=== PATIENT | male | born 1950 | race Caucasian/White ===

== ENCOUNTER 2022-03-08 23:10 | Inpatient (IN) | payer MEDICARE, MEDICAID ==
[~2022-03-08] VITALS: Ht 172.7 cm; Wt 65.2 kg
[2022-03-08] MEDS ORDERED: LISI-893 PO (23:51)
[2022-03-08] MEDS ORDERED: CHL25 PO (23:51)
[2022-03-08] MEDS ORDERED: CALC250T2 PO (23:51)
[2022-03-08] MEDS ORDERED: SIMV-260 PO (23:51)
[2022-03-08] MEDS ORDERED: LACT10SO32 PO (23:53)
[2022-03-08] MEDS ORDERED: DONE-51 PO (23:53)
[2022-03-08] MEDS ORDERED: OXCA300T57 PO (23:53)
[2022-03-09 00:11] LABS: BASOPHILS % (AUTO) 0.5 % (0.0-2.0); EOSINOPHILS % (AUTO) 0.2 % (1.0-6.0); HEMATOCRIT 40.9 % (41-53); HEMOGLOBIN 12.4 g/dL (13.5-17.5); LYMPHOCYTES # (AUTO) 6.5 K/uL (1.0-4.8); LYMPHOCYTES % (AUTO) 38.4 % (22.0-44.0); MEAN CORPUSCULAR HEMOGLOBIN 30.3 pg (26.0-34.0); MEAN CORPUSCULAR HGB CONC 30.3 G/dL (31.0-37.0); MEAN CORPUSCULAR VOLUME 100 fL (80-100); MONOCYTES # (AUTO) 1.1 K/uL (0.1-1.0); MONOCYTES % (AUTO) 6.3 % (2.0-9.0); NEUTROPHILS # (AUTO) 9.3 K/uL (1.8-7.7); NEUTROPHILS % (AUTO) 54.6 % (40.0-70.0); PLATELET COUNT (AUTO) 127 K/uL (150-450); RED BLOOD CELL COUNT(AUTO) 4.09 MIL/uL (4.50-5.90); RED CELL DISTRIBUTION WIDTH 17.5 % (11.5-14.5)
[2022-03-09] MEDS ORDERED: NOREPINEPHRINE 8 MG/D5%-WATER 250 ML IV PRN (00:15)
[2022-03-09 00:42] LABS: ALBUMIN 2.8 g/dL (3.4-5.0); BILIRUBIN,TOTAL 0.2 mg/dL (0.1-1.0); CALCIUM, TOTAL 8.3 mg/dL (8.8-10.5); CREATININE 3.82 mg/dL (0.60-1.30); POTASSIUM 5.6 mmol/L (3.5-5.1); TOTAL PROTEIN, SERUM 7.7 g/dL (6.4-8.2)
[2022-03-09 00:44] LABS: LACTIC ACID 4.8 mmol/L (0.4-2.0)
[2022-03-09] MEDS ORDERED: PHENYLEPHRINE 200 MG/D5%-WATER 250 ML IV PRN (00:45)
[2022-03-09] MEDS ORDERED: PIPERACILLIN/TAZO 3.375 GM/D5W 50 ML IV ONE (00:45)
[2022-03-09] MEDS ORDERED: VANCOMYCIN 1GM/WATER(PEG/NADA) 200 ML IV ONE (00:45)
[2022-03-09 00:46] LABS: D-DIMER 23.48 mg/L FEU (0.00-0.50)
[2022-03-09 01:07] LABS: ABG BASE EXCESS -18.1 mmol/L (-2.0-3.0); ABG CARBOXYHEMOGLOBIN 0.2 % (0.0-1.5); ABG HCO3 11.5 mmol/L (22.0-26.0); ABG METHEMOGLOBIN 0.3 % (0.0-1.5); ABG OXYGEN CONTENT 15.4 mL/dL (15.0-23.0); ABG OXYGEN SATURATION 98.9 % (95.0-98.0); ABG OXYHEMOGLOBIN 98.4 % (94.0-100.0); ABG PCO2 37 mmHg (35-45); ABG TOTAL HEMOGLOBIN 10.7 G/dL (12.0-18.0); PO2, ARTERIAL BG 251.1 mmHg (75.0-83.0); SOURCE, BLOOD GAS ARTERIAL; TEMPERATURE, FAHRENHEIT, BG 99.1 FAHREN (96.0-98.6)
[2022-03-09 01:08] LABS: ABG PH 7.106 (7.35-7.450); O2 DEVICE,BLOOD GAS VENT (ROOM AIR); SITE, BLOOD GAS RT RADIAL; VT, ABG 450 ml
[2022-03-09 01:09] LABS: PEEP,BG 5 cm H2O
[2022-03-09 01:11] LABS: CREATINE KINASE, TOTAL ONLY 1643 U/L (39-308)
[2022-03-09] MEDS ORDERED: DOPamine 400MG/D5W[STANDARD] 250 ML IV PRN (01:15)
[2022-03-09] MEDS ORDERED: SODIUM CHLORIDE 0.9% 1,900 ML IV ONE (01:15)
[2022-03-09 01:44] LABS: COVID AG,FIA SOURCE NASAL SWAB
[2022-03-09] MEDS ORDERED: VASOPRESSIN 40 UNITS in DEXTROSE 5%-WATER 98 ML IV PRN (02:00)
[2022-03-09 02:11] LABS: INFLUENZA TYPE A NEGATIVE FOR TYPE A (NEGATIVE); INFLUENZA TYPE B NEGATIVE FOR TYPE B (NEGATIVE)
[2022-03-09] MEDS ORDERED: ONDANSETRON HCL 4 MG/2 ML VIAL IVP PRN (02:15)
[2022-03-09] MEDS ORDERED: SODIUM CHLORIDE 0.9% 500 ML IV ONE ×2 (02:15→02:30)
[2022-03-09] MEDS ORDERED: ACETAMINOPHEN 325 MG TABLET PO PRN (02:15)
[2022-03-09] MEDS ORDERED: SODIUM CHLORIDE 0.9% 1,000 ML IV SCH (02:15)
[2022-03-09] MEDS ORDERED: CALCIUM GLUCONATE 100 MG/ML 10 ML IVP ONE (02:15)
[2022-03-09] MEDS ORDERED: SODIUM BICARBONATE [ADULT] 8.4% 50 MEQ/50 ML SYRINGE IVP ONE ×2 (02:27→02:30)
[2022-03-09] MEDS ORDERED: INSULIN LISPRO 100 UNITS/ML SQ ONE (02:30)
[2022-03-09] MEDS ORDERED: DEXTROSE 50%-WATER 25 GM/50 ML SYRINGE IVP PRN ×3 (02:30→12:30)
[2022-03-09] MEDS ORDERED: DEXTROSE 50%-WATER 25 GM/50 ML SYRINGE IVP ONE (02:30)
[2022-03-09] MEDS ORDERED: INSULIN LISPRO 100 UNITS/ML SQ PRN ×3 (02:30→12:30)
[2022-03-09] MEDS ORDERED: HEPARIN SODIUM,PORCINE 5,000 UNITS/ML VIAL IVP PRN ×2 (02:45)
[2022-03-09] MEDS ORDERED: HEPARIN SODIUM 25000 UNITS/D5W 250 ML IV PRN (02:45)
[2022-03-09] MEDS ORDERED: HEPARIN SODIUM,PORCINE 5,000 UNITS/ML VIAL IVP ONE (02:45)
[2022-03-09] MEDS ORDERED: *CLINICAL-CEFEPIME DOSING CLINICAL ONE (03:00)
[2022-03-09 03:06] LABS: APPEARANCE,URINE TURBID (CLEAR); BILIRUBIN,URINE NEGATIVE (NEGATIVE); GLUCOSE, URINE (UA) TRACE mg/dL (NEGATIVE); KETONES,URINE NEGATIVE (NEGATIVE); LEUKOCYTE ESTERASE ,URINE LARGE (NEGATIVE); NITRATE,URINE NEGATIVE (NEGATIVE); OCCULT BLOOD,URINE LARGE (NEGATIVE); PROTEIN,URINE 300-600,SEE CONFIRM mg/dL (NEGATIVE); SPECIFIC GRAVITIY, URINE 1.021 (1.003-1.030); UROBILINOGEN,URINE <=1.0 mg/dL (<=1.0)
[2022-03-09 03:08] LABS: CREATININE,URINE RANDOM 142.2 mg/dL (30.0-125.0)
[2022-03-09 03:15] LABS: CREATININE 2.85 mg/dL (0.60-1.30); POTASSIUM 4.3 mmol/L (3.5-5.1)
[2022-03-09] MEDS ORDERED: VANCOMYCIN HCL 1 GM in DEXTROSE 5%-WATER 250 ML IV PRN (03:15)
[2022-03-09] MEDS ORDERED: DEXMEDETOMIDINE HCL 400 MCG in SODIUM CHLORIDE 0.9% 96 ML IV PRN (03:15)
[2022-03-09 03:20] LABS: SULFOSALICYLIC ACID,URINE 3+ (Negative); WBC,URINE Full Field /HPF (0-5)
[2022-03-09 03:21] LABS: BACTERIA,URINE Rare /HPF (None Seen)
[2022-03-09 03:22] LABS: FINE GRANULAR CASTS,URINE 0-2 /LPF (None Seen)
[2022-03-09] MEDS ORDERED: SODIUM BICARBONATE 150 MEQ in DEXTROSE 5%-0.45% SODIUM CHL 1,000 ML IV SCH (03:30)
[2022-03-09 03:51] LABS: ABG PCO2 37 mmHg (35-45); ABG PH 7.213 (7.35-7.450); PO2, ARTERIAL BG 51.7 mmHg (75.0-83.0); SITE, BLOOD GAS RT BRACHIAL; SOURCE, BLOOD GAS ART; TEMPERATURE, FAHRENHEIT, BG 98.6 FAHREN (96.0-98.6)
[2022-03-09 03:52] LABS: ABG BASE EXCESS -13.4 mmol/L (-2.0-3.0); ABG HCO3 14.4 mmol/L (22.0-26.0); ABG OXYHEMOGLOBIN 82.4 % (94.0-100.0); ABG TOTAL HEMOGLOBIN 10.5 G/dL (12.0-18.0)
[2022-03-09 03:53] LABS: ABG CARBOXYHEMOGLOBIN 0.3 % (0.0-1.5); ABG METHEMOGLOBIN 0.3 % (0.0-1.5); ABG OXYGEN CONTENT 12.2 mL/dL (15.0-23.0)
[2022-03-09 03:54] LABS: ABG A-A DIFF O2 191.6 mmHg (10-20.0); ABG OXYGEN SATURATION 83.1 % (95.0-98.0); O2 DEVICE,BLOOD GAS VENTILATOR (ROOM AIR); PEEP,BG 5 cm H2O; VT, ABG 400 ml
[2022-03-09 04:21] LABS: INR 1.3 (0.9-1.1); PROTHROMBIN TIME 13.7 SEC (9.4-11.6)
[2022-03-09] MEDS ORDERED: ALBUTEROL SULFATE 2.5 MG/0.5 ML NEB SOLUTION NEB ONE (05:00)
[2022-03-09] MEDS: NOREPINEPHRINE 8 MG/D5%-WATER 250 ML IV PRN ×3 (05:44→18:25)
[2022-03-09] MEDS ORDERED: MIDAZOLAM HCL 2 MG/2 ML VIAL IVP PRN (06:00)
[2022-03-09] MEDS ORDERED: CEFEPIME HCL 1 GM in DEXTROSE 5%-WATER 50 ML IV SCH (06:00)
[2022-03-09 08:00] VITALS: BP 107/53
[2022-03-09] MEDS ORDERED: HEPARIN SODIUM,PORCINE 5,000 UNITS/ML VIAL SQ SCH (08:00)
[2022-03-09] MEDS ORDERED: PROPOFOL 1000 MG/ISO-OSM 100 ML ONE (08:31)
[2022-03-09] MEDS ORDERED: [UNRECOGNIZED DRUG - OTHER] PO SCH (09:00)
[2022-03-09] MEDS ORDERED: SIMVASTATIN 20 MG TABLET PO SCH (09:00)
[2022-03-09] MEDS ORDERED: CHLORTHALIDONE 25 MG TABLET PO SCH (09:00)
[2022-03-09] MEDS: LACTULOSE 20 GM/30 ML SOLUTION UDCUP PO SCH ×2 (09:00→21:18)
[2022-03-09] MEDS: OXcarbazepine 300 MG TABLET PO SCH ×2 (09:00→21:19)
[2022-03-09] MEDS: FAMOTIDINE 10 MG/ML 2 ML VIAL IVP SCH (09:22)
[2022-03-09 09:40] LABS: CALCIUM, TOTAL 6.7 mg/dL (8.8-10.5); CREATININE 4.02 mg/dL (0.60-1.30); POTASSIUM 4.3 mmol/L (3.5-5.1)
[2022-03-09 09:45] LABS: LACTIC ACID 7.8 mmol/L (0.4-2.0)
[2022-03-09 09:52] LABS: BASOPHILS % (AUTO) 0.4 % (0.0-2.0); EOSINOPHILS % (AUTO) 0.7 % (1.0-6.0); HEMATOCRIT 35.5 % (41-53); LYMPHOCYTES # (AUTO) 1.3 K/uL (1.0-4.8); LYMPHOCYTES % (AUTO) 39.2 % (22.0-44.0); MEAN CORPUSCULAR HGB CONC 31.1 G/dL (31.0-37.0); MEAN CORPUSCULAR VOLUME 100 fL (80-100); MONOCYTES % (AUTO) 1.3 % (2.0-9.0); NEUTROPHILS % (AUTO) 58.4 % (40.0-70.0); PLATELET COUNT (AUTO) 88 K/uL (150-450); RED BLOOD CELL COUNT(AUTO) 3.56 MIL/uL (4.50-5.90); RED CELL DISTRIBUTION WIDTH 17.3 % (11.5-14.5)
[2022-03-09] MEDS: PROPOFOL 1000 MG/ISO-OSM 100 ML IV PRN (10:00)
[2022-03-09 10:03] LABS: ALBUMIN 1.9 g/dL (3.4-5.0); BILIRUBIN,TOTAL 0.4 mg/dL (0.1-1.0); TOTAL PROTEIN, SERUM 5.7 g/dL (6.4-8.2)
[2022-03-09 10:17] LABS: SITE, BLOOD GAS RT RADIAL
[2022-03-09 10:18] LABS: ABG PH 7.259 (7.35-7.450); SOURCE, BLOOD GAS ARTERIAL; TEMPERATURE, FAHRENHEIT, BG 90.1 FAHREN (96.0-98.6)
[2022-03-09 10:19] LABS: ABG BASE EXCESS -17.4 mmol/L (-2.0-3.0); ABG CARBOXYHEMOGLOBIN 0.3 % (0.0-1.5); ABG HCO3 12.4 mmol/L (22.0-26.0); ABG OXYHEMOGLOBIN 95.2 % (94.0-100.0); ABG PCO2 23 mmHg (35-45); ABG TOTAL HEMOGLOBIN 11.9 G/dL (12.0-18.0); PO2, ARTERIAL BG 65.7 mmHg (75.0-83.0)
[2022-03-09 10:20] LABS: ABG METHEMOGLOBIN 0.3 % (0.0-1.5); ABG OXYGEN SATURATION 95.8 % (95.0-98.0)
[2022-03-09 10:21] LABS: O2 DEVICE,BLOOD GAS VENTILATOR (ROOM AIR); PEEP,BG 5 cm H2O; VT, ABG 400 ml
[2022-03-09 10:24] LABS: PLATELET MORPHOLOGY COMMENT LARGE PLTS PRESENT
[2022-03-09] MEDS ORDERED: POTA-92 PO (11:18)
[2022-03-09] MEDS ORDERED: CALC200T42 PO (11:18)
[2022-03-09] MEDS: PHENYLEPHRINE 200 MG/D5%-WATER 250 ML IV PRN ×2 (11:30→21:19)
[2022-03-09] MEDS: DEXTROSE 5% IV SCH ×4 (11:30→17:11)
[2022-03-09] MEDS: [UNRECOGNIZED DRUG - OTHER] IV SCH ×4 (11:30→17:11)
[2022-03-09] MEDS: VASOPRESSIN 40 UNITS in DEXTROSE 5%-WATER 98 ML IV PRN (11:45)
[2022-03-09 12:00] VITALS: BP 59/31
[2022-03-09] MEDS ORDERED: HEPARIN SODIUM,PORCINE 1,000 UNITS/ML VIAL ONE (14:25)
[2022-03-09] MEDS ORDERED: HEPARIN SODIUM,PORCINE 1,000 UNITS/ML VIAL IVCATH PRN (14:30)
[2022-03-09] MEDS: DOPamine 400MG/D5W[STANDARD] 250 ML IV PRN ×2 (15:13→19:51)
[2022-03-09 16:00] VITALS: BP 105/60
[2022-03-09 17:31] LABS: CALCIUM, TOTAL 6.1 mg/dL (8.8-10.5); CREATININE 3.67 mg/dL (0.60-1.30); MAGNESIUM 2.1 mg/dL (1.80-2.40); PHOSPHORUS 4.4 mg/dL (2.5-4.9); POTASSIUM 4.1 mmol/L (3.5-5.1)
[2022-03-09] MEDS ORDERED: EPINEPHrine 1:10,000 [1 MG/10 ML] SYRINGE IVP ONE (17:37)
[2022-03-09] MEDS ORDERED: DOPamine HCL/D5W 400 MG/250 ML IV BAG IV ONE (17:37)
[2022-03-09] MEDS ORDERED: AMIODARONE HCL 50 MG/ML 3 ML VIAL IV ONE (17:37)
[2022-03-09] MEDS ORDERED: INSULIN REGULAR, HUMAN 100 UNITS in SODIUM CHLORIDE 0.9% 99 ML IV PRN ×2 (17:45)
[2022-03-09 18:01] LABS: GLUCOSE,POINT OF CARE 499 MG/DL (70-110)
[2022-03-09 18:11] LABS: GLUCOSE,POINT OF CARE 461 MG/DL (70-110)
[2022-03-09 20:00] VITALS: BP 119/68
[2022-03-10] VITALS: BP 112/55
[2022-03-10 00:19] LABS: CALCIUM, TOTAL 6.1 mg/dL (8.8-10.5); CREATININE 3.59 mg/dL (0.60-1.30)
[2022-03-10 00:26] LABS: GLUCOSE,POINT OF CARE 313 MG/DL (70-110)
[2022-03-10 00:26] LABS: GLUCOSE,POINT OF CARE 393 MG/DL (70-110)
[2022-03-10 00:26] LABS: GLUCOSE,POINT OF CARE 348 MG/DL (70-110)
[2022-03-10 00:26] LABS: GLUCOSE,POINT OF CARE 355 MG/DL (70-110)
[2022-03-10 00:26] LABS: GLUCOSE,POINT OF CARE 371 MG/DL (70-110)
[2022-03-10] MEDS ORDERED: PHENYLEPHRINE HCL 400 MG in DEXTROSE 5%-WATER 210 ML IV PRN (01:00)
[2022-03-10] MEDS ORDERED: NOREPINEPHRINE BITARTRATE 16 MG in DEXTROSE 5%-WATER 234 ML IV PRN (01:00)
[2022-03-10] MEDS: VASOPRESSIN 40 UNITS in DEXTROSE 5%-WATER 98 ML IV PRN (01:19)
[2022-03-10] MEDS: PROPOFOL 1000 MG/ISO-OSM 100 ML IV PRN (01:20)
[2022-03-10] MEDS ORDERED: SODIUM CHLORIDE 0.9% 250 ML IV ONE ×2 (01:51→03:15)
[2022-03-10 02:21] LABS: GLUCOSE,POINT OF CARE 287 MG/DL (70-110)
[2022-03-10 02:21] LABS: GLUCOSE,POINT OF CARE 317 MG/DL (70-110)
[2022-03-10] MEDS ORDERED: DOPamine 800MG/D5W[DOUBLE] 250 ML IV PRN (03:00)
[2022-03-10] MEDS ORDERED: SODIUM CHLORIDE 0.9% 500 ML IV ONE (03:13)
[2022-03-10 04:00] VITALS: BP 116/55
[2022-03-10 04:11] VITALS: BP 110/54
[2022-03-10 05:31] LABS: BASOPHILS % (AUTO) 0.1 % (0.0-2.0); EOSINOPHILS % (AUTO) 0.1 % (1.0-6.0); HEMOGLOBIN 10.6 g/dL (13.5-17.5); LYMPHOCYTES # (AUTO) 1.3 K/uL (1.0-4.8); LYMPHOCYTES % (AUTO) 13.6 % (22.0-44.0); MEAN CORPUSCULAR HGB CONC 32.1 G/dL (31.0-37.0); MEAN CORPUSCULAR VOLUME 96 fL (80-100); MONOCYTES # (AUTO) 0.3 K/uL (0.1-1.0); NEUTROPHILS # (AUTO) 8.1 K/uL (1.8-7.7); NEUTROPHILS % (AUTO) 83.2 % (40.0-70.0); PLATELET COUNT (AUTO) 60 K/uL (150-450); RED BLOOD CELL COUNT(AUTO) 3.42 MIL/uL (4.50-5.90); RED CELL DISTRIBUTION WIDTH 15.8 % (11.5-14.5)
[2022-03-10 05:36] LABS: ALBUMIN 1.8 g/dL (3.4-5.0); BILIRUBIN,TOTAL 0.3 mg/dL (0.1-1.0); CREATININE 3.77 mg/dL (0.60-1.30); POTASSIUM 4.4 mmol/L (3.5-5.1); TOTAL PROTEIN, SERUM 5.8 g/dL (6.4-8.2)
[2022-03-10 06:51] LABS: GLUCOSE,POINT OF CARE 272 MG/DL (70-110)
[2022-03-10 06:51] LABS: GLUCOSE,POINT OF CARE 251 MG/DL (70-110)
[2022-03-10 06:51] LABS: GLUCOSE,POINT OF CARE 203 MG/DL (70-110)
[2022-03-10 07:21] LABS: GLUCOSE,POINT OF CARE 195 MG/DL (70-110)
[2022-03-10 07:21] LABS: GLUCOSE,POINT OF CARE 188 MG/DL (70-110)
[2022-03-10] MEDS: OXcarbazepine 300 MG TABLET PO SCH (09:01)
[2022-03-10] MEDS: FAMOTIDINE 10 MG/ML 2 ML VIAL IVP SCH (09:02)
[2022-03-10] MEDS: LACTULOSE 20 GM/30 ML SOLUTION UDCUP PO SCH (09:02)
[2022-03-10] MEDS ORDERED: [UNRECOGNIZED DRUG - OTHER] IV SCH ×2 (10:00)
[2022-03-10] MEDS ORDERED: DEXTROSE 5% IV SCH ×2 (10:00)
[2022-03-10] MEDS ORDERED: EPINEPHrine 1:10,000 [1 MG/10 ML] SYRINGE IVP ONE (16:52)
[2022-03-10 18:11] LABS: GLUCOSE,POINT OF CARE 145 MG/DL (70-110)
== END 2022-03-10 16:53 | DRG 871 ==
LOC: EMS 23:13 → ICU 03-09 02:14
PROVIDERS: ADMIT Internal Medicine; ATTEND Internal Medicine
PROC: 5A1945Z Respiratory Ventilation, 24-96 Consecutive Hours (ICD-10-PCS; principal; 2022-03-09)
PROC: 0BH17EZ Insertion of Endotracheal Airway into Trachea, Via Natural or Artificial Opening (ICD-10-PCS; 2022-03-09)
PROC: 5A12012 Performance of Cardiac Output, Single, Manual (ICD-10-PCS; 2022-03-09)
PROC: 02HV33Z Insertion of Infusion Device into Superior Vena Cava, Percutaneous Approach (ICD-10-PCS; 2022-03-09)
PROC: B548ZZA Ultrasonography of Superior Vena Cava, Guidance (ICD-10-PCS; 2022-03-09)
PROC: 04HY32Z Insertion of Monitoring Device into Lower Artery, Percutaneous Approach (ICD-10-PCS; 2022-03-09)
PROC: 4A133B1 Monitoring of Arterial Pressure, Peripheral, Percutaneous Approach (ICD-10-PCS; 2022-03-09)
PROC: 4A133J1 Monitoring of Arterial Pulse, Peripheral, Percutaneous Approach (ICD-10-PCS; 2022-03-09)
DX: A41.9 Sepsis, unspecified organism (principal); I46.9 Cardiac arrest, cause unspecified; J18.9 Pneumonia, unspecified organism; J96.01 Acute respiratory failure with hypoxia; N17.0 Acute kidney failure with tubular necrosis; R65.21 Severe sepsis with septic shock; E87.1 Hypo-osmolality and hyponatremia; E87.0 Hyperosmolality and hypernatremia; E87.4 Mixed disorder of acid-base balance; J98.11 Atelectasis; N39.0 Urinary tract infection, site not specified; I69.359 Hemiplegia and hemiparesis following cerebral infarction affecting unspecified side; Z20.822 Contact with and (suspected) exposure to COVID-19; E83.51 Hypocalcemia; E11.22 Type 2 diabetes mellitus with diabetic chronic kidney disease; D69.6 Thrombocytopenia, unspecified; E88.09 Other disorders of plasma-protein metabolism, not elsewhere classified; E11.65 Type 2 diabetes mellitus with hyperglycemia; E78.5 Hyperlipidemia, unspecified; E87.5 Hyperkalemia; E87.8 Other disorders of electrolyte and fluid balance, not elsewhere classified; F01.50 Vascular dementia, unspecified severity, without behavioral disturbance, psychotic disturbance, mood disturbance, and anxiety; F31.9 Bipolar disorder, unspecified; G40.909 Epilepsy, unspecified, not intractable, without status epilepticus; I12.9 Hypertensive chronic kidney disease with stage 1 through stage 4 chronic kidney disease, or unspecified chronic kidney disease; I25.10 Atherosclerotic heart disease of native coronary artery without angina pectoris; N18.9 Chronic kidney disease, unspecified; I49.01 Ventricular fibrillation; Z74.01 Bed confinement status; Q90.9 Down syndrome, unspecified; Z98.2 Presence of cerebrospinal fluid drainage device
CPT/HCPCS: 31500; 36600; 71045; 76770; 80048; 80053; 81001; 81002; 82550; 82570; 82805; 82962; 83605; 83735; 83880; 84100; 84300; 84484; 85025; 85379; 85610; 85730; 87040; 87077; 87081; 87086; 87205; 87804; 92950; 92960; 93005; 93306; 93970; 94002; 94003; 99291; G0378; J0171; J0282; J0610; J0692; J1265; J1644; J1815; J2370; J2543; J2704; J3490; J7030; J7040; J7050; J7060; Q9967; 36415-L1; 36415-TC; J7613